=== PATIENT | male | born 1960 | race Caucasian/White ===

== ENCOUNTER 2021-07-30 12:44 | Emergency (ER) | payer BC, SELFPAY ==
[2021-07-30 13:00] VITALS: BP 148/95; PULSE 96; RESP 21; TEMP 36.9; O2SAT 96; BMI 39.5
--- NOTE | 2021-07-30 13:37 | HMH.EDUTC ---
[facility] Disposition Clinical Impression: Diarrhea Qualifiers: Diarrhea type: unspecified type Qualified Code(s): R19.7 - Diarrhea, unspecified Maxillary sinusitis, acute Qualifiers: Recurrence: non-recurrent Qualified Code(s): J01.00 - Acute maxillary sinusitis, unspecified Disposition: Home, Self-Care Condition on Discharge: Good Instructions: DI for Sinusitis Additional Instructions: Start antibiotic patient to take as ordered for a full length of time even if you feel better. Sinus infections do not get better overnight. It may take 2-3 days to notice much improvement so be sure to use conservative measures as discussed for symptoms. Flonase 1 spray each nostril daily to help with nasal congestion, sinus and ear pressure/information Increase fluids Humidifier/vaporizer as needed Tylenol and ibuprofen as needed for fever or pain. If symptoms do not improve or get worse return or be seen in the ER Follow-up with primary care this week Prescriptions: Fluticasone Propionate [Flonase 50mcg nasal spray 16gm] 1 spr NS DAILY 7 Days #9.9 ml Prescription Printed Azithromycin [Zithromax 250mg tab] 250 mg PO DIRECTED #6 tab Prescription Printed Referrals: Eduardo Garcia [Primary Care Provider] - Time of Disposition: 13:45 Medical Decision Making - Stefano Inquiry Pt receiving controlled substance: No Vital Signs: 07/30/21 13:00 Temperature 98.4 F Temperature Source Oral Pulse Rate [Left Brachial] 96 H Respiratory Rate 21 Blood Pressure [Left Arm] 148/95 H Blood Pressure Mean [Left Arm] 112 Blood Pressure Source [Left Arm] Automatic Cuff Blood Pressure Position [Left Arm] Sitting 02 Sat by Pulse Oximetry 96 Oxygen Delivery Method Room Air [facility] HPI - General Chief complaint: Urgent Treatment Center Stated complaint: diarrhea Time Seen by Provider: 07/30/21 13:37 Mode of Arrival: Ambulatory Source of Information: Patient Limitations: No Limitations Description of Symptoms (Recalled from Triage Doc. by RN): PATIENT C/O POSSIBLE SINUS INFECTION AND DIARRHEA-TODAY HEENT Symptoms (Recalled from RN notes): Yes Resp Symptoms (Recalled from RN notes): No Skin Symptoms (Recalled from RN notes): No MS Symptoms (Recalled from RN notes): No Functional Status (Recalled from RN notes): WNL - History of Present Illness Provider Complaint: 61 yr old male presents for diarreha today and he feels he has had a sinus infection for a couple weeks. having green nasal congestion, sinus pain and pressure - Related Data Previous Rx's Medication Instructions Recorded Azithromycin [Zithromax 250mg 250 mg PO DIRECTED #6 tab 07/30/21 tab] Fluticasone Propionate [Flonase 1 spr NS DAILY 7 Days #9.9 ml 07/30/21 50mcg nasal spray 16gm] Allergies Allergy/AdvReac Type Severity Reaction Status Date / Time Sulfa (Sulfonamide Allergy Verified 07/30/21 13:18 Antibiotics) - Worker's Comp Is this a Worker's Comp case?: No [facility] History - Hepatitis A Screen Drug use history?: No High risk sexual behaviors?: No History of sexually transmitted infection?: No Currently employed?: No Childcare worker?: No Do you have indoor plumbing?: Yes Do you have electricity?: Yes Attestation statement:: This patient has been screened for Hepatitis A risk factors. I have reviewed the patient's past medical history: Yes ROS Obtained: Yes Systems reviewed as appropriate & no additional complaints - Constitutional Constitutional: Reports system reviewed and no additional complaints, except as docu, Denies chills, Denies fever(s) - Eyes Eyes: Reports system reviewed and no additional complaints, except as docu, Denies dry eyes - ENT Ears, Nose, Mouth, and Throat: Reports system reviewed and no additional complaints, except as docu, Reports nasal congestion, Reports nasal discharge, Reports sinus pain, Reports sinus pressure - Cardiovascular Cardiovascular: Reports system reviewed and no additional complain
[2021-07-30 13:45] VITALS: BP 148/95; PULSE 96; RESP 21; TEMP 36.9; O2SAT 96
== END 2021-07-30 13:52 | disposition home or self-care (01) ==
PROVIDERS: Emergency Provider Nurse Practitioner Family; PCP Family Medicine
DX: R19.7 Diarrhea, unspecified (principal); J01.00 Acute maxillary sinusitis, unspecified; Z79.51 Long term (current) use of inhaled steroids; Z88.2 Allergy status to sulfonamides
CPT/HCPCS: 99213; G0463

== ENCOUNTER 2022-05-30 19:00 | Emergency (ER) | payer BC, SELFPAY ==
[2022-05-30 19:45] VITALS: BP 141/88; PULSE 92; RESP 20; TEMP 36.8; O2SAT 97; BMI 40.3
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
[2022-05-30 20:56] VITALS: BP 141/88; PULSE 92; RESP 20; TEMP 36.8; O2SAT 97
== END 2022-05-30 20:55 | disposition home or self-care (01) ==
PROVIDERS: Emergency Provider Nurse Practitioner Family; PCP Family Medicine
DX: S61.216A Laceration without foreign body of right little finger without damage to nail, initial encounter (principal); W33.11XA Accidental malfunction of shotgun, initial encounter; Z23 Encounter for immunization
CPT/HCPCS: 12001; 90471; 90715; 99212; 99213; G0463

== ENCOUNTER 2022-06-15 09:29 | Emergency (ER) | payer BC, SELFPAY ==
[2022-06-15 10:00] VITALS: BP 152/82; PULSE 85; RESP 16; TEMP 37; O2SAT 98; BMI 39.4
--- NOTE | 2022-06-15 10:20 | EXP.UTC ---
Discharge Plan Disposition Patient Disposition: Home, Self-Care Condition: Good Prescriptions Prescriptions: New amoxicillin-pot clavulanate 875-125 mg Tablet 1 tab PO Q12H Qty: 14 0RF gentamicin 0.3 % drops 1 - 2 drp ophthalmic (eye) Q4H 7 Days Qty: 5 0RF methylprednisolone [Medrol (Thai)] 4 mg tablets,dose pack See Rx Instructions .Route .COMPLEX 6 Days Qty: 21 0RF Rx Instructions: taper pack; No Action clopidogrel 75 mg tablet 75 mg PO DAILY cephalexin 500 mg capsule 500 mg PO QID 7 Days Qty: 28 0RF Referrals Follow up/Referrals: Eduardo Garcia [Primary Care Provider] - See instructions Activity Restrictions/Add. Instructions Additional Instructions/Restrictions: *Monitor Temp, Over the counter Motrin or Tylenol as directed/as needed Tylenol every 4 hours and Motrin every 6 hours (as long as your family doctor has told you that you can take it) for fever or pain. and straight to ER if unable to lower temp less than 101.0 after medication given *Warm salt water gargles may help to soothe the throat *Throat Lozenges? *Warm fluids like tea with honey may help to soothe the throat? *Sleep elevated *Humidifier/Vaporizer Use eye drops as prescribed Follow up IMMEDIATELY for new or worsening symptoms or no Noticeable improvement over the next 48-72 hours. 911 for difficulty breathing or swallowing Clinical Impressions Clinical Impression: Sinusitis Instructions Patient Instructions: DI for Sinusitis, Conjunctivitis, DI for Conjunctivitis Discharge ED Provider: Whitney Mujica [facility] General Stated complaint: head congestion, runny nose Mode of Arrival: Ambulatory Source of Information: Patient Limitations: No Limitations Time Seen by Provider: 06/15/22 10:21 Description of Symptoms (Recalled from Triage Doc. by RN): PATIENT C/O DARK GREEN SINUS DRAINAGE AND EYE DRAINAGE X 1 WEEK HEENT Symptoms (Recalled from RN notes): Yes Resp Symptoms (Recalled from RN notes): No Skin Symptoms (Recalled from RN notes): No MS Symptoms (Recalled from RN notes): No Functional Status (Recalled from RN notes): WNL History of Present Illness Provider Complaint: Patient states he has been having sinus pain and pressure along with thick dark green mucous and this mornign he woke up with his left eye crusted over and matted shut and draining so he came in Related Data Home Medications Medication Instructions Recorded Confirmed clopidogrel 75 mg tablet 75 mg PO DAILY . 05/30/22 05/30/22 Previous Rx's Medication Instructions Recorded cephalexin 500 mg capsule 500 mg PO QID 7 days #28 caps 05/30/22 amoxicillin 875 mg-potassium 1 tab PO Q12H #14 tabs 06/15/22 clavulanate 125 mg tablet gentamicin 0.3 % eye drops 1 - 2 drp ophthalmic (eye) Q4H 7 06/15/22 days #5 mL methylprednisolone 4 mg tablets in See Rx Instructions .Route 06/15/22 a dose pack (Medrol (Thai)) .COMPLEX 6 days #21 tabs Allergies Allergy/AdvReac Type Severity Reaction Status Date / Time Sulfa (Sulfonamide Allergy Verified 05/30/22 20:27 Antibiotics) Worker's Comp Is this a Worker's Comp case?: No [facility] Disclaimer: The information contained in this section may have been updated after the patient was seen, as this information can be updated by other users. Medical History (Updated 06/15/22 @ 10:32 by Whitney Mujica APRN) History of heart attack Hyperlipidemia Hypertension Pre-diabetes Surgical History (Updated 06/15/22 @ 10:07 by Felisa Botello RN) History of AAA (abdominal aortic aneurysm) repair History of cardiac catheterization History of cholecystectomy Social History (Updated 06/15/22 @ 10:08 by Felisa Botello RN) Smoking Status: Current every day smoker alcohol intake: never current occupational status: employed Travel in the last 8 weeks: None ROS Obtained: Yes All systems reviewed & no additional complaints except as documen
[2022-06-15 10:34] VITALS: BP 152/82; PULSE 85; RESP 16; TEMP 37; O2SAT 98
== END 2022-06-15 10:40 | disposition home or self-care (01) ==
PROVIDERS: Emergency Provider Nurse Practitioner; PCP Family Medicine
DX: J32.9 Chronic sinusitis, unspecified (principal)
CPT/HCPCS: 99212; 99213; G0463